=== PATIENT | female | born 1955 | race African-American/Black ===

== ENCOUNTER → 2017-05-04 | Outpatient (CLI) | payer OTHER ==
--- NOTE | 2017-05-04 17:59 | WOMENS IMAGING REPORT ---
EXAM DESCRIPTION: BILAT SCREENING MAMMO W/CAD COMPLETED DATE/TIME: 05/04/2017 8:13 am REASON FOR STUDY: SCREENING MAMMO Z12.31 ENCNTR SCREEN MAMMOGRAM FOR MALIGNANT NEOPLASM OF [place] COMPARISON: Multiple since 2008 TECHNIQUE: Standard craniocaudal and mediolateral oblique views of each breast recorded using digita l acquisition. LIMITATIONS: None. FINDINGS: Findings present which are benign by mammographic criteria. No suspicious masses, calcifi cations or architectural distortion. Pertinent benign findings: Benign right breast calcifications 12 o'clock central Read with the assistance of CAD. .[facility] - R2 Cenova Version 1.3 .[facility] - R2 Cenova Version 1.3 .[facility] - R2 Cenova Version 2.4 .[facility] [place] - R2 Cenova Version 2.4 .[facility] - R2 Animal Rescuer Version 9.2 Benign mammographic findings may include one or more of the following: Smooth masses, popcorn/rim/co arse calcifications, asymmetries, post-procedure changes, and lesions with long-standing stability. IMPRESSION: BENIGN MAMMOGRAPHIC FINDINGS. BIRADS 2 BREAST DENSITY: c. The breasts are heterogeneously dense, which may obscure small masses. BIRAD: 2 BENIGN FINDING(S) RECOMMENDATION: ROUTINE SCREENING yearly, Please consider bilateral screening tomosynthesis in April 2018 COMMENT: The patient has been notified of the results by letter per [place] requirements. Additional no tification policies are in place for contacting patient with suspicious or incomplete findings. Quality ID #[id number]: The [employer] recommends an annual screening mammogram for women aged 40 years or over. This facility utilizes a reminder system to ensure that all patients receive reminder letters, and/or direct phone calls for appointments. This includes reminders for routine scr eening mammograms, diagnostic mammograms, or other Breast Imaging Interventions when appropriate. Th is patient will be placed in the appropriate reminder system. The [employer] ([employer]) has developed recommendations for screening MRI of the breast s in certain patient populations, to be used in conjunction with mammography. Breast MRI surveillanc e may be appropriate for women with more than 20% lifetime risk of developing breast cancer as deter mined by genetic testing, significant family history of the disease, or history of mantle radiation f or Hodgkins Disease. ACR Practice Guidelines 2008. TECHNICAL DOCUMENTATION: FINDING NUMBER: (1) ASSESSMENT: (1) JOB ID: [id number] [employer]- All Rights Reserved
== END ==
LOC: WI 07:53
PROVIDERS: ATTEND Family Medicine
DX: Z12.31 Encounter for screening mammogram for malignant neoplasm of breast (principal)
CPT/HCPCS: 77067

== ENCOUNTER 2019-07-31 14:49 | Emergency (ER) | payer OTHER ==
[2019-07-31] MEDS ORDERED: ASPIRIN 325 MG TABLET PO ONE (15:11)
--- NOTE | 2019-07-31 15:18 | ER Document Report ---
ED General - General Chief Complaint: Chest Pain Stated Complaint: LEFT SIDE NUMBNESS Time Seen by Provider: 07/31/19 15:01 Primary Care Provider: BRADEN SHAY MD [Primary Care Provider] - Follow up as needed Notes: HPI: 63-year-old female with the onset around 5 days ago of some left intermittent arm pain radiating from the left lateral neck. She denies any trauma. She denies any weakness to the arm. She states at times her fingertips are "numb". She denies any leg or facial symptoms. She denies any runny nose, congestion, cough, fevers, or vomiting. Only on review of systems is the patient states some anterior left chest wall discomfort that is nonexertional. No radiation to the back. No abdominal pain or epigastric pain. ROS: See HPI All other review of systems reviewed and otherwise negative Reviewed vital signs and nursing note as charted by RN. PHYSICAL EXAM: CONSTITUTIONAL: Alert and oriented and responds appropriately to questions. Well-appearing; well-nourished HEAD: Normocephalic; atraumatic EYES: Sclerae non-icteric ENT: Normal nose; no rhinorrhea; moist mucous membranes; pharynx without lesions noted NECK: Supple without meningismus; non-tender to midline cervical palpation with no restricted range of motion. Patient does have some left-sided paraspinal muscular tenderness with no swelling or erythema noted CARD: Regular rate and rhythm; no murmurs; symmetric distal pulses RESP: Normal chest excursion without splinting or tachypnea; breath sounds clear and equal bilaterally; no wheezes, no rhonchi, no rales ABD/GI: Normal bowel sounds; non-distended; soft, non-tender; no palpable organomegaly or masses BACK: The back appears normal and is non-tender to palpation EXT: Normal ROM in all joints; non-tender to palpation; no edema SKIN: No acute lesions noted NEURO: CN 2-12 intact; 5/5 bilateral upper and lower extremity strength with sensation intact to light touch including the left upper extremity. Strong distal pulses with a warm hand PSYCH: The patient's mood and manner are appropriate. Grooming and personal hygiene are appropriate. TRAVEL OUTSIDE OF THE [place] IN LAST 30 DAYS: No - Related Data Allergies/Adverse Reactions: codeine Allergy (Verified 07/31/19 15:04) tomato Allergy (Verified 07/31/19 15:06) Home Medications: clariton lasix zyrtec singular lutrel albuterol inhaler Past Medical History - Social History Smoking Status: Current Some Day Smoker Chew tobacco use (# tins/day): No Frequency of alcohol use: None Drug Abuse: None Family History: Reviewed & Not Pertinent Patient has suicidal ideation: No Patient has homicidal ideation: No - Immunizations Immunizations up to date: Yes Hx Diphtheria, Pertussis, Tetanus Vaccination: Yes Physical Exam - Vital signs Vitals: Temp Resp BP Pulse Ox 98.1 F 13 150/86 H 97 07/31/19 15:06 07/31/19 15:06 07/31/19 15:06 07/31/19 15:06 Course - Re-evaluation Re-evalutation: Given the above history and physical examination with 5 days of some i ntermittent left lateral neck pain radiating down the left arm, with no trauma, no arm swelling, weakness, with excellent distal pulses, afebrile, with no focal neurological deficits, I do believe cervical fracture, discitis, epidural abscess, or osteomyelitis to be unlikely. There is no joint swelling with full range of motion of the wrist, elbow, and shoulder. Patient does have some left paraspinal muscular tenderness with no swelling or erythema or other infectious signs. Given the patient's left anterior nonexertional chest discomfort, I will evaluate with an EKG and a cardiac panel. This was only elicited on review of systems as the patient is mostly concerned about this left lateral arm pain. EKG shows a heart rate of 95, normal sinus rhythm, normal axis, no obvious ST elevation or depression. 07/31/19 17:13 Labs and imaging as recorded. No change in exam. Still no arm swelling, redness, with excellent distal pulses and strength of the left hand. Given the duration and onset of symptoms, with radiation from the left neck down the arm, with a normal troponin and x-ray of the chest as recorded, EKG as recorded, I do not believe any further imaging or laboratory work is necessary at this moment. I will discharge the patient home with strict return precautions and follow-up with the primary care physician and possibly the box shook patcher as an outpatient. - Vital Signs Vital signs: Temp Pulse Resp BP Pulse Ox 98.1 F 16 150/86 H 97 07/31/19 15:06 07/31/19 15:07 07/31/19 15:06 07/31/19 15:06 - Laboratory Result Diagrams: 07/31/19 16:05 07/31/19 16:05 Laboratory results interpreted by me: 07/31/19 07/31/19 16:05 16:05 Hct 35.8 L MCV 75 L MCH 26.3 L RDW 15.7 H Carbon Dioxide 31 H Discharge - Discharge Clinical Impression: Radiculopathy affecting upper extremity, Atypical chest pain Condition: Good Disposition: HOME, SELF-CARE Additional Instructions: Come back immediately for any increased pain to the arm, neck, or shoulder, weakness, swelling or redness of the arm, worsening pain to the chest, shortness of breath, leg swelling, fevers, or any other acute problems. Please follow-up with the primary care physician as well as possibly the box shook patcher that I have helped expedite for you. Referrals: BRADEN SHAY MD [Primary Care Provider] - Follow up as needed JORGE HERNÁNDEZ MD [ACTIVE STAFF] - Follow up as needed
--- NOTE | 2019-07-31 15:29 | RADIOLOGY REPORT (SQ) ---
EXAM DESCRIPTION: CHEST 2 VIEWS IMAGES COMPLETED DATE/TIME: 07/31/2019 3:21 pm REASON FOR STUDY: 11; chest pain COMPARISON: None. EXAM PARAMETERS: NUMBER OF VIEWS: two views TECHNIQUE: Digital Frontal and Lateral radiographic views of the chest acquired. RADIATION DOSE: NA LIMITATIONS: none FINDINGS: LUNGS AND PLEURA: No opacities, masses or pneumothorax. No pleural effusion. Mild biapica l pleural thickening MEDIASTINUM AND HILAR STRUCTURES: No masses or contour abnormalities. HEART AND VASCULAR STRUCTURES: Heart normal size. No evidence for failure. BONES: No acute findings. HARDWARE: None in the chest. OTHER: No other significant finding. IMPRESSION: NO ACUTE RADIOGRAPHIC FINDING IN THE CHEST. TECHNICAL DOCUMENTATION: JOB ID: [id number] 2010 [employer] All Rights Reserved Reading location - IP/workstation name: [email or web address]
[2019-07-31 16:22] LABS: ABSOLUTE EOSINOPHILS # (AUTO) 0.2 10^3/uL (0.0-0.6); ABSOLUTE LYMPHOCYTES (AUTO) 2.3 10^3/uL (0.5-4.7); ABSOLUTE MONOCYTES (AUTO) 0.6 10^3/uL (0.1-1.4); BASOPHILS % (AUTO) 0.3 % (0-2); HEMATOCRIT 35.8 % (36.0-47.0); HEMOGLOBIN 12.6 g/dL (12.0-15.5); LYMPHOCYTES % (AUTO) 27.8 % (13-45); MEAN CORPUSCULAR HEMOGLOBIN 26.3 pg (27.0-33.4); MEAN CORPUSCULAR HGB CONC 35.1 g/dL (32.0-36.0); MEAN CORPUSCULAR VOLUME 75 fl (80-97); MONOCYTES % (AUTO) 7.8 % (3-13); PLATELET COUNT 323 10^3/uL (150-450); RED BLOOD COUNT 4.79 10^6/uL (3.72-5.28); RED CELL DISTRIBUTION WIDTH 15.7 % (11.5-14.0); SEGMENTED NEUTROPHILS % (AUTO) 61.1 % (42-78); TOTAL CELLS COUNTED % (AUTO) 100 %; WHITE BLOOD COUNT 8.2 10^3/uL (4.0-10.5)
[2019-07-31 16:39] LABS: ANION GAP 5 (5-19); BLOOD UREA NITROGEN 11 mg/dL (7-20); CALCIUM 9.9 mg/dL (8.4-10.2); CARBON DIOXIDE 31 mmol/L (22-30); CHLORIDE 104 mmol/L (98-107); GLUCOSE 109 mg/dL (75-110); POTASSIUM 4.1 mmol/L (3.6-5.0)
[2019-07-31 18:20] VITALS: BP 135/83
--- NOTE | 2019-07-31 22:52 | EKG REPORT ---
SEVERITY:- ABNORMAL ECG - SINUS RHYTHM PROBABLE LEFT ATRIAL ABNORMALITY : Confirmed by: Krys Goss 31-Jul-2019 22:51:47
== END 2019-07-31 18:20 | disposition home or self-care (01) ==
LOC: ER 14:49
DX: M54.12 Radiculopathy, cervical region (principal); R07.89 Other chest pain; M79.602 Pain in left arm; M54.2 Cervicalgia; Z79.899 Other long term (current) drug therapy; Z88.6 Allergy status to analgesic agent; Z88.5 Allergy status to narcotic agent; Z91.018 Allergy to other foods
CPT/HCPCS: 36415; 71046; 80048; 84484; 85025; 93005; 93010; 99285